=== PATIENT | female | born 1975 | race Caucasian/White ===

== ENCOUNTER 2022-01-06 20:55 | Emergency (ER) | payer BC, SELFPAY ==
--- NOTE | ~2022-01-06 | CT_ITS ---
EXAMINATION: CT lumbar spine wo con DATE: 01/06/2022 22:26 INDICATION: Low back pain for 12 hours. TECHNIQUE: Computed tomography (CT) of the lumbar spine was performed without intravenous contrast. T he dose-length product was 341.96 mGy-cm. Automated exposure control and iterative reconstruction anuradha hnique were employed. COMPARISON: None FINDINGS: Vertebral body heights are maintained. No fracture or traumatic malalignment. Mild disc timmy rowing at L4-5 with disc protrusion. No significant spinal stenosis. No evidence for spondylolysis or spondylolisthesis. There is an IUD in the uterus. Bladder is distended. IMPRESSION: 1. No acute abnormality of the lumbar spine. 2: Mild lumbar spondylosis. Reviewed, dictated and finalized at location A.
[2022-01-06 21:00] VITALS: BP 136/72; PULSE 108; RESP 18; TEMP 36.6; O2SAT 100
--- NOTE | 2022-01-06 21:34 | ED.BACK ---
HPI - Back Pain/Injury General Chief Complaint: Back Pain/Injury Stated Complaint: lower back pain Time Seen by Provider: 01/06/22 21:22 Source: patient Mode of arrival: ambulatory Limitations: no limitations History of Present Illness HPI Narrative: This is a 46-year-old female that presents to the emergency department for low back pain ongoing today. No recent injury or trauma. The pain is worse with movement and relieved with rest. She took ibuprofen earlier today with little relief which prompted her to be seen. Denies dysuria, hematuria, vomiting, saddle anesthesia, or bowel/bladder incontinence. Related Data Home Medications Medication Instructions Recorded Confirmed spironolactone 50 mg tablet 50 mg PO DAILY 01/06/22 01/06/22 Allergies Allergy/AdvReac Type Severity Reaction Status Date / Time minocycline Allergy Difficulty Verified 01/06/22 21:03 Breathing Penicillins Allergy Rash Verified 01/06/22 21:03 Sulfa (Sulfonamide Allergy Rash Verified 01/06/22 21:03 Antibiotics) sulfamethoxazole Allergy Rash Verified 01/06/22 21:03 [From Bactrim] trimethoprim [From Bactrim] Allergy Rash Verified 01/06/22 21:03 Review of Systems Review of Systems: CONSTITUTIONAL: Denies fever SKIN: Denies rash MUSCULOSKELETAL: Reports back pain, joint pain, and myalgia. NEUROLOGIC: Denies numbness, or weakness. All systems reviewed & are unremarkable except as noted in HPI and below PMFSH Past Medical History Medical History (Updated 01/06/22 @ 23:01 by Winter Peña PA-C) History of acne Social History Social History (Updated 01/06/22 @ 21:36 by Winter Peña PA-C) Smoking status: Never smoker Exam Narrative: GENERAL: Well-appearing, well-nourished, and in no acute distress. HEAD: Normocephalic, atraumatic. EYES: EOMI. CHEST: Clear to auscultation. No respiratory distress. No wheezes rales or rhonchi HEART: Regular rate and rhythm. No murmur heard. Normal peripheral pulses. BACK: No midline spinal tenderness EXTREMITIES: Normal range of motion. No edema. Strength equal in bilateral lower extremities (5/5). Normal DP pulses SKIN: Warm, dry, no rash. NEURO: No focal deficits. Alert and oriented x3. PSYCH: Normal mood and affect Course Vital Signs Vital signs: Vital Signs Temperature 97.9 F 01/06/22 21:00 Pulse Rate 108 H 01/06/22 21:00 Respiratory Rate 18 01/06/22 21:00 Blood Pressure 136/72 01/06/22 21:00 Pulse Oximetry 100 01/06/22 21:00 Temperature 97.9 F 01/06/22 21:00 Pulse Rate 108 H 01/06/22 21:00 Respiratory Rate 18 01/06/22 21:00 Blood Pressure 136/72 01/06/22 21:00 Pulse Oximetry 100 01/06/22 21:00 MDM - Back Pain/Injury MDM Narrative Medical decision making narrative: Patient presents to the emergency department for low back pain ongoing today. No recent injury or trauma. She is neurologically intact. CT scan of the lumbar spine shows straightening of the normal lumbar lordosis as well as mild disc protrusion at L4/5. Patient and family updated on case findings. Instructed to rest, ice and take [id number] pain medication as needed. Will be given muscle relaxer as needed for pain. She is to follow-up with her primary care provider. She will be given neurosurgery if needed. She was given warnings to return to the ER Imaging Data Radiologist's impression: CT lumbar spine STATRAD: Straightening of the normal lumbar lordosis. Slight hypertrophic degenerative changes. Mild disc protrusion at L4/5 Critical Care Time Critical Care Time Critical Care Time: No Discharge Plan Discharge Clinical Impression: Muscle spasm Herniated disc Qualifiers: Spinal region: lumbar Qualified Code(s): M51.26 - Other intervertebral disc displacement, lumbar region Patient Disposition: Home, Self-Care Condition: Stable Instructions: Lumbar Disc Herniation (ED), Muscle Spasm (ED) Additional Instructions: Return to t
[2022-01-06] MEDS: KETOROLAC 30 MG/ML VIAL (*BKC) IM (21:43)
[2022-01-06] MEDS: ACETAMINOPHEN 500 MG TABLET 1000 MG PO (21:44)
[2022-01-06] MEDS: diazePAM INJ (*CRX) 10 MG/2 ML SYRINGE 5 MG IM (21:44)
== END 2022-01-06 23:18 | disposition home or self-care (01) ==
PROVIDERS: Emergency Provider Emergency Medicine
DX: M51.26 Other intervertebral disc displacement, lumbar region (principal); M62.830 Muscle spasm of back
CPT/HCPCS: 72131; 96372; 99284; A9270; J1885; J3360